=== PATIENT | male | born 1985 | race African-American/Black ===

== ENCOUNTER 2018-04-01 09:12 | Emergency (ER) | payer BC, OTHER ==
[2018-04-01 09:18] VITALS: BP 136/75; PULSE 69; TEMP 98.7; BMI 33.0
--- NOTE | 2018-04-01 10:02 | PDOC ---
History of Present Illness - General Chief Complaint: Chest Pain Stated Complaint: CHEST PAIN Time Seen by Provider: 04/01/18 10:01 History Source: Patient Exam Limitations: Clinical Condition - History of Present Illness Initial Comments: 04/01/18 10:23 Patient with past medical history present with complain of over week history of midsternal chest pains after working out at gym which has been persistent. Patient reported pain is localized to midsternal area with no radiation of pain. Denies dizziness, palpitations, sweats, nausea or vomiting or lightheadedness. Denies any other symptoms. 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 Timing/Duration: other (10 days) Past History - Past Medical History Allergies/Adverse Reactions: Allergies Allergy/AdvReac Type Severity Reaction Status Date / Time No Known Allergies Allergy Verified 04/01/18 09:14 Home Medications: Ambulatory Orders Naproxen 500 mg PO BID PRN #20 tablet 04/01/18 COPD: No - Suicide/Smoking/Psychosocial Hx Smoking History: Never smoked Have you smoked in the past 12 months: No Information on smoking cessation initiated: No Hx Alcohol Use: No Drug/Substance Use Hx: No Substance Use Type: None Review of Systems - Review of Systems Able to Perform ROS?: Yes Is the patient limited Thai proficient: No Constitutional: No: Chills, Diaphoresis, Fever, Loss of Appetite, Malaise, Night Sweats, Weakness, Weight Stable, Unintentional Wgt. Loss, Unexplained wgt Loss, Other HEENTM: No: Eye Pain, Blurred Vision, Tearing, Recent change in vision, Double Vision, Cataracts, Ear Pain, Ocular Prothesis, Ear Discharge, Nose Pain, Nose Congestion, Tinnitus, Nose Bleeding, Hearing Loss, Throat Pain, Throat Swelling , Mouth Pain, Dental Problems, Difficulty Swallowing, Mouth Swelling, Other Respiratory: No: Cough, Orthopnea, Shortness of Breath, SOB with Exertion, SOB at Rest, Stridor, Wheezing, Productive cough, Hemoptysis, Other Cardiac (ROS): Yes: See HPI, Chest Pain (midsternum x 1 week). No: Irregular Heart Rate, Lightheadedness, Palpitations, Syncope, Chest Tightness ABD/GI: No: Abdominal Distended, Abd. Pain w/ defecation, Blood Streaked Bowels , Constipated, Diarrhea, Difficulty Swallowing, Nausea, Poor Appetite, Poor Fluid Intake, Rectal Bleeding, Vomiting, Indigestion, Abdominal cramping, Tarry Stools, Other Musculoskeletal: No: Back Pain, Gout, Joint Pain, Joint Swelling, Muscle Pain, Muscle Weakness, Neck Pain, Joint Stiffness, Other Integumentary: No: Bruising, Change in Color, Change in Hair/Nails, Dryness, Erythema, Flushing, Lesions, Lumps, Pallor, Pruritus, Rash, Sweating, Other Neurological: No: Headache, Numbness, Paresthesia, Pre-Existing Deficit, Seizure , Tingling, Tremors, Weakness, Unsteady Gait, Ataxia, Dizziness, Other All Other Systems: Reviewed and Negative *Physical Exam - Vital Signs Last Vital Signs Temp Pulse Resp BP Pulse Ox 98.7 F 69 18 136/75 100 04/01/18 09:15 04/01/18 09:15 04/01/18 09:15 04/01/18 09:15 04/01/18 09:15 - Physical Exam Comments: 04/01/18 10:26 GENERAL: Well developed, well nourished. Awake and alert. No acute distress. HEENT: Normocephalic, atraumatic. PERRLA, EOMI. No conjunctival pallor. Sclera are non- icteric. Moist mucous membranes. Oropharynx is clear. NECK: Supple. Full ROM. No JVD. Carotid pulses 2+ and symmetric, without bruits. No thyromegaly. No lymphadenopathy. CARDIOVASCULAR: mild reproduceable tenderness over midsternum area.Regular rate and rhythm. No murmurs, rubs, or gallops. Distal pulses are 2+ and symmetric. PULMONARY: No evidence of respiratory distress. Lungs clear to auscultation bilaterally. No wheezing, rales or rhonchi. ABDOMINAL: Soft. Non-tender. Non-distended. No rebound or guarding. No organomegaly. Normoactive bowel sounds. MUSCULOSKELETAL : Normal range of motion at all joints. No bony deformities or tenderness. No CVA tenderness. EXTREMITIES: No cyanosis. No clubbing. No edema. No calf tenderness. SKIN: Warm and dry. Normal capillary refill. No rashes. No jaundice. NEUROLOGICAL: Alert, awake, appropriate. Cranial nerves 2-12 intact. No deficits to light touch and temperature in face, upper extremities and lower extremities. No motor deficits in the in face, upper extremities and lower extremities. Normoreflexic in the upper and lower extremities. Normal speech. Toes are down- going bilaterally. Gait is normal without ataxia. PSYCHIATRIC: Cooperative. Good eye contact. Appropriate mood and affect. General Appearance: Yes: Nourished, Appropriately Dressed. No: Apparent Distress Medical Decision Making - Medical Decision Making 04/01/18 10:28 Patient with no cervical past medical history presenting with complain over a week history of substernal chest pains with no other symptoms. Exam shows mild tenderness over the sternal area. EKG shows normal sinus rhythm and chest x-ray shows no acute pathology. Symptoms likely costochondritis given normal vital signs and afebrile. Patient will be discharged home on NSAIDs with strict follow -up *DC/Admit/Observation/Transfer Diagnosis at time of Disposition: Costochondral chest pain, Costochondritis, acute - Discharge Dispostion Disposition: HOME Condition at time of disposition: Stable Decision to Admit order: No - Prescriptions Prescriptions: Naproxen 500 mg PO BID PRN #20 tablet PRN Reason: pain - Referrals Referrals: Sebastian David [Primary Care Provider] - - Patient Instructions Printed Discharge Instructions: Costochondritis, DI for Costochondritis Additional Instructions: Take prescribed medication as needed for pain. No weight lifting for the next 2- 3 days at a gym. Exercise as tolerated after 3 days - Post Discharge Activity
--- NOTE | 2018-04-02 16:31 | EKG ---
Test Reason : Blood Pressure : / mmHG Vent. Rate : 063 BPM Atrial Rate : 063 BPM P-R Int : 148 ms QRS Dur : 106 ms QT Int : 388 ms P-R-T Axes : 043 055 042 degrees QTc Int : 397 ms NORMAL SINUS RHYTHM WITH SINUS ARRHYTHMIA NORMAL ECG NO PREVIOUS ECGS AVAILABLE Confirmed by James Amezcua ([id number]) on 04/02/2018 4:31:13 PM Referred By: Confirmed By:James Amezcua
== END 2018-04-01 10:27 | disposition home or self-care (01) ==
LOC: JERFT 09:12
DX: M94.0 Chondrocostal junction syndrome [Tietze] (principal); X50.0XXA Overexertion from strenuous movement or load, initial encounter; Y93.B9 Activity, other involving muscle strengthening exercises; Y92.39 Other specified sports and athletic area as the place of occurrence of the external cause; Y99.8 Other external cause status
CPT/HCPCS: 71046-TC-FY; 93005; 93010; 99281-25

== ENCOUNTER 2022-04-05 00:03 | Inpatient (IN) | payer BC, OTHER ==
[2022-04-05 00:21] VITALS: BMI 33.0
[2022-04-05] MEDS ORDERED: predniSONE 20 MG TABLET (UD) PO ONE ×2 (00:56→01:01)
[2022-04-05] MEDS ORDERED: predniSONE 20 MG TABLET (UD) ONE (01:05)
[2022-04-05 01:19] LABS: BASO % 0.9 % (0-2.0); HEMATOCRIT 39.1 % (35.4-49); HEMOGLOBIN 12.9 GM/dL (11.7-16.9); LYMPH % 27.3 % (8-40); MEAN CELL VOLUME 78.8 fl (80-96); MEAN PLT VOLUME 8.3 fl (7.5-11.1); MONO % 9.3 % (3.8-10.2); NEUT % 58.5 % (42.8-82.8); PLATELET COUNT 242 10^3/uL (134-434); RBC 4.96 M/mm3 (4.00-5.60); WHITE BLOOD COUNT 7.1 K/mm3 (4.0-10.0)
[2022-04-05 01:34] LABS: CALCIUM 9.1 mg/dL (8.5-10.1)
[2022-04-05 01:35] LABS: ALBUMIN 4.1 g/dl (3.4-5.0); BLOOD UREA NITROGEN 25.4 mg/dL (7-18)
[2022-04-05 01:38] LABS: CREATININE 2.5 mg/dL (0.55-1.3)
[2022-04-05 01:40] LABS: BILIRUBIN,TOTAL 0.9 mg/dL (0.2-1); TOT PROT 7.8 g/dl (6.4-8.2)
[2022-04-05] MEDS ORDERED: SODIUM CHLORIDE 0.9% 500 ML INFUS.BAG IV ONE (01:58)
[2022-04-05] MEDS ORDERED: SODIUM CHLORIDE 1,000 ML IV SCH (08:15)
[2022-04-05] MEDS ORDERED: NIFEdipine E.R. 30 MG TABLET ONE ×2 (08:51→17:25)
[2022-04-05 09:45] LABS: EPI CELLS 3 /uL (0-25.1); HYALINE CASTS 0 /uL (0-3.1); PH,URINE 6.5 (5.0-8.0); URINE APPEARANCE CLEAR; URINE BACTERIA 4 /uL (0-1359); URINE BILIRUBIN NEGATIVE (NEGATIVE); URINE COLOR YELLOW; URINE GLUCOSE (UA) NEGATIVE (NEGATIVE); URINE KETONE NEGATIVE (NEGATIVE); URINE LEUK ESTERASE NEGATIVE (NEGATIVE); URINE NITRITE NEGATIVE (NEGATIVE); URINE PROTEIN 2+ (NEGATIVE); URINE RBC 15 /uL (0-23.9); URINE UROBILINOGEN 0.2 mg/dL (0.2-1.0); URINE WBC 1 /uL (0-25.8)
[2022-04-05 09:58] LABS: PHENCYCLIDINE,URINE NEGATIVE (NEGATIVE)
[2022-04-05 09:59] LABS: COCAINE, UR NEGATIVE (NEGATIVE); OPIATES, URI NEGATIVE (NEGATIVE); URINE AMPHETAMINES NEGATIVE (NEGATIVE); URINE BENZODIAZEPINES NEGATIVE (NEGATIVE)
[2022-04-05 10:00] LABS: URINE BARBITURATES NEGATIVE (NEGATIVE)
[2022-04-05] MEDS ORDERED: NIFEdipine E.R. 30 MG TABLET PO SCH (10:00)
[2022-04-05 10:04] LABS: METHADONE, UR NEGATIVE (NEGATIVE)
[2022-04-05] MEDS ORDERED: LABETALOL HCL 5 MG/1 ML (100MG/20 ML VIAL) IVPUSH ONE (11:05)
[2022-04-05] MEDS ORDERED: SODIUM CHLORIDE 0.45% 1,000 ML IV SCH (13:30)
[2022-04-05] MEDS ORDERED: NIFEdipine E.R. 30 MG TABLET PO ONE ×2 (15:05→16:17)
[2022-04-05] MEDS ORDERED: LABETALOL HCL 100 MG TABLET (FP) PO ONE (15:08)
[2022-04-05] MEDS ORDERED: LABETALOL HCL 100 MG TABLET (FP) ONE (15:26)
[2022-04-06 07:43] LABS: BASO % 0.4 % (0-2.0); EOS % 1.5 % (0-4.5); HEMATOCRIT 37.1 % (35.4-49); HEMOGLOBIN 12.5 GM/dL (11.7-16.9); MCH 26.2 pg (25.7-33.7); MCHC 33.7 g/dl (32.0-35.9); MEAN CELL VOLUME 77.8 fl (80-96); MEAN PLT VOLUME 8.3 fl (7.5-11.1); MONO % 7.9 % (3.8-10.2); NEUT % 69.2 % (42.8-82.8); PLATELET COUNT 215 10^3/uL (134-434); RBC 4.77 M/mm3 (4.00-5.60); RDW 14.2 % (11.9-15.9); WHITE BLOOD COUNT 8.3 K/mm3 (4.0-10.0)
[2022-04-06 07:53] LABS: INR 1.05 (0.83-1.09); PROTHROMBIN TIME (PATIENT) 12.1 SEC (9.7-13.0)
[2022-04-06 07:54] LABS: ACTIVATED PTT 29.6 SECONDS (25.2-36.5)
[2022-04-06 08:12] LABS: BLOOD UREA NITROGEN 28.3 mg/dL (7-18); MAGNESIUM 2.4 mg/dL (1.8-2.4)
[2022-04-06 08:15] LABS: CREATININE 2.3 mg/dL (0.55-1.3); PHOSPHOROUS 3.6 mg/dL (2.5-4.9)
[2022-04-06 08:17] LABS: TOT PROT 7.2 g/dl (6.4-8.2)
[2022-04-06] MEDS: HEPARIN NA (PORCINE) 5,000 UNITS/ML 1ML VIAL SQ SCH ×3 (09:31→21:19)
[2022-04-06] MEDS ORDERED: SODIUM CHLORIDE 0.45% 1,000 ML IV SCH (10:00)
[2022-04-06] MEDS ORDERED: LABETALOL HCL 100 MG TABLET (FP) PO SCH (10:00)
[2022-04-06] MEDS ORDERED: NIFEdipine E.R. 30 MG TABLET PO SCH (10:00)
[2022-04-06] MEDS ORDERED: NIFEdipine E.R 60 MG TABLET PO SCH (14:09)
[2022-04-06 15:21] VITALS: RESP 18
[2022-04-06] MEDS ORDERED: NIFEdipine E.R. 30 MG TABLET PO ONE (21:26)
[2022-04-07] MEDS: HEPARIN NA (PORCINE) 5,000 UNITS/ML 1ML VIAL SQ SCH ×2 (06:46→13:37)
[2022-04-07 09:00] LABS: BASO % 0.6 % (0-2.0); EOS % 3.3 % (0-4.5); HEMATOCRIT 39.3 % (35.4-49); HEMOGLOBIN 13.3 GM/dL (11.7-16.9); LYMPH % 28.4 % (8-40); MCH 26.6 pg (25.7-33.7); MEAN CELL VOLUME 78.3 fl (80-96); MEAN PLT VOLUME 8.2 fl (7.5-11.1); MONO % 9.5 % (3.8-10.2); NEUT % 58.2 % (42.8-82.8); PLATELET COUNT 224 10^3/uL (134-434); RBC 5.02 M/mm3 (4.00-5.60); RDW 14.3 % (11.9-15.9)
[2022-04-07 09:18] LABS: BLOOD UREA NITROGEN 27.4 mg/dL (7-18)
[2022-04-07 09:22] LABS: CREATININE 2.4 mg/dL (0.55-1.3)
[2022-04-07] MEDS ORDERED: NIFEdipine E.R 60 MG TABLET PO SCH (10:00)
[2022-04-07] MEDS ORDERED: NIFEdipine E.R. 30 MG TABLET PO ONE (13:52)
[2022-04-07 16:09] VITALS: BP 164/103; PULSE 94; TEMP 99
[2022-04-11 16:08] LABS: ATYPICAL pANCA <1:20 titer (Neg:<1:20); C-ANCA <1:20 titer (Neg:<1:20)
== END 2022-04-07 17:13 | disposition home or self-care (01) | DRG 683 ==
LOC: JER 00:03 → JERBED 03:38 → J4W 23:28
PROVIDERS: ADMIT Internal Medicine; ATTEND Internal Medicine
DX: N17.9 Acute kidney failure, unspecified (principal); I16.1 Hypertensive emergency; M62.82 Rhabdomyolysis; N18.9 Chronic kidney disease, unspecified; R07.0 Pain in throat; E66.9 Obesity, unspecified; Z68.33 Body mass index [BMI] 33.0-33.9, adult
CPT/HCPCS: 36415; 76775-TC; 80048; 80053; 80307; 81003; 82436; 82550; 82553; 82570; 83036; 83520; 83735; 83930; 83935; 84100; 84133; 84155; 84156; 84165; 84300; 84436; 84443; 85025; 85610; 85651; 85730; 86038; 86140; 86160; 86225; 86256; 87086; 87651; 93005; 93010; 93306-TC; 99285-25; C9803-CS; J1644; U0003; U0005

== ENCOUNTER 2022-05-22 04:32 | Day surgery (SDC) | payer BC, OTHER ==
[2022-05-19 18:06] VITALS: BMI 31.3
[2022-05-22] MEDS ORDERED: MIDAZOLAM HCL 2 MG/2 ML SINGLE DOSE VIAL ONE (10:35)
[2022-05-22] MEDS ORDERED: MIDAZOLAM HCL 2 MG/2 ML SINGLE DOSE VIAL IVPUSH ONE (10:55)
[2022-05-22] MEDS ORDERED: ONDANSETRON 4 MG/2 ML VIAL ONE (11:41)
[2022-05-22] MEDS ORDERED: oxyCODONE HCL 5 MG TABLET ONE (12:12)
[2022-05-22] MEDS ORDERED: oxyCODONE HCL 5 MG TABLET PO ONE (12:15)
[2022-05-22 13:07] VITALS: RESP 18
[2022-05-22 14:06] VITALS: TEMP 97.9
[2022-05-22 15:05] VITALS: BP 119/70; PULSE 64
== END 2022-05-22 14:50 | disposition home or self-care (01) ==
LOC: JRADIR 04:32
PROVIDERS: ATTEND Internal Medicine
PROC: 0TB13ZX Excision of Left Kidney, Percutaneous Approach, Diagnostic (ICD-10-PCS; principal; 2022-05-22)
DX: N26.9 Renal sclerosis, unspecified (principal)
CPT/HCPCS: 50200; 88300-TC; 88329

== ENCOUNTER 2023-03-01 10:17 | Emergency (ER) | payer BC, OTHER ==
[2023-03-01 10:39] VITALS: BP 136/92; PULSE 99; RESP 18; TEMP 98.3; BMI 32.5
[2023-03-01 12:04] LABS: BASO % 0.6 % (0-2.0); EOS % 3.3 % (0-4.5); HEMATOCRIT 39.6 % (35.4-49); HEMOGLOBIN 12.7 GM/dL (11.7-16.9); LYMPH % 29.7 % (8-40); MCH 25.8 pg (25.7-33.7); MCHC 32.1 g/dl (32.0-35.9); MEAN CELL VOLUME 80.3 fl (80-96); MEAN PLT VOLUME 8.5 fl (7.5-11.1); MONO % 9.6 % (3.8-10.2); NEUT % 56.8 % (42.8-82.8); PLATELET COUNT 280 10^3/uL (134-434); RBC 4.93 M/mm3 (4.00-5.60); RDW 14.4 % (11.9-15.9); WHITE BLOOD COUNT 7.7 K/mm3 (4.0-10.0)
[2023-03-01 12:25] LABS: POTASSIUM 4.4 mmol/L (3.5-5.1)
[2023-03-01 12:27] LABS: ALBUMIN 4.1 g/dl (3.4-5.0); BLOOD UREA NITROGEN 23.6 mg/dL (7-18); CALCIUM 9.2 mg/dL (8.5-10.1)
[2023-03-01 12:30] LABS: CREATININE 2.2 mg/dL (0.55-1.3)
[2023-03-01 12:32] LABS: BILIRUBIN,TOTAL 0.6 mg/dL (0.2-1); TOT PROT 7.6 g/dl (6.4-8.2)
== END 2023-03-01 13:01 | disposition home or self-care (01) ==
LOC: JER 10:17
DX: R07.89 Other chest pain (principal)
CPT/HCPCS: 36415; 71046-TC-FY; 80053; 84484; 85025; 93005; 93010; 99285-25

== ENCOUNTER 2024-02-14 09:45 | Emergency (ER) | payer BC, OTHER ==
[2024-02-14 10:06] VITALS: BMI 33.4
[2024-02-14] MEDS ORDERED: ACETAMINOPHEN INJECTION 100 ML IVPB ONE (10:53)
[2024-02-14] MEDS: ACETAMINOPHEN 1000 MG/100 ML BAG IVPB ONE (11:12)
[2024-02-14 11:26] LABS: BASO % 0.4 % (0-2.0); HEMATOCRIT 38.1 % (35.4-49); HEMOGLOBIN 12.8 GM/dL (11.7-16.9); LYMPH % 26.2 % (8-40); MCH 25.9 pg (25.7-33.7); MCHC 33.5 g/dl (32.0-35.9); MEAN CELL VOLUME 77.5 fl (80-96); MEAN PLT VOLUME 7.8 fl (7.5-11.1); MONO % 10.3 % (3.8-10.2); NEUT % 60.1 % (42.8-82.8); PLATELET COUNT 247 10^3/uL (134-434); RBC 4.92 M/mm3 (4.00-5.60); RDW 14.7 % (11.9-15.9); WHITE BLOOD COUNT 7.2 K/mm3 (4.0-10.0)
[2024-02-14 11:45] LABS: POTASSIUM 4.6 mmol/L (3.5-5.1)
[2024-02-14 11:54] LABS: ALBUMIN 4.1 g/dl (3.4-5.0)
[2024-02-14 11:55] LABS: BILIRUBIN,TOTAL 0.6 mg/dL (0.2-1); BLOOD UREA NITROGEN 25.2 mg/dL (7-18); MAGNESIUM 2.1 mg/dL (1.8-2.4); TOT PROT 7.6 g/dl (6.4-8.2)
[2024-02-14 14:00] LABS: CHOLESTEROL 250 mg/dL (50-200)
[2024-02-14 14:01] LABS: HDL CHOLESTEROL 47 mg/dL (40-60); LDL CHOLESTEROL (ONLY SJRH) 177 mg/dL (5-100)
[2024-02-14 15:43] VITALS: BP 121/77; PULSE 75; RESP 16; TEMP 98.2
== END 2024-02-14 15:30 | disposition home or self-care (01) ==
LOC: JER 09:45
DX: R07.2 Precordial pain (principal); Z20.822 Contact with and (suspected) exposure to COVID-19
CPT/HCPCS: 0241U-QW; 36415; 71046-TC-FY; 80053; 80061; 83735; 84484; 85025; 93005; 93010; 99285-25

== ENCOUNTER 2024-12-08 05:35 | Day surgery (SDC) | payer BC, OTHER ==
[2024-12-05 11:16] VITALS: BMI 32.0
[2024-12-08 12:29] VITALS: RESP 20
[2024-12-08] MEDS ORDERED: MIDAZOLAM HCL 2 MG/2 ML SINGLE DOSE VIAL ONE (13:50)
[2024-12-08] MEDS ORDERED: ONDANSETRON 4 MG/2 ML VIAL ONE (14:27)
[2024-12-08] MEDS: ONDANSETRON 4 MG/2 ML VIAL IVPB ONE (14:30)
[2024-12-08 16:03] VITALS: BP 107/73; PULSE 65; TEMP 97.1
== END 2024-12-08 16:03 | disposition home or self-care (01) ==
LOC: JASU-SURG 05:35
PROVIDERS: ATTEND Urology
PROC: 0TF3XZZ Fragmentation in Right Kidney Pelvis, External Approach (ICD-10-PCS; principal; 2024-12-08 14:00)
DX: N20.0 Calculus of kidney (principal)